=== PATIENT | female | born 1995 | race Native Hawaiian/Other Pacific Islander ===

== ENCOUNTER 2017-01-11 22:39 | Emergency (ER) | payer SELFPAY ==
[~2017-01-11] VITALS: Ht 157.5 cm; Wt 59.0 kg
[~2017-01-11 22:39] MED LIST: CEPHALEXIN500 MG PO; KEFLEX500 MG PO; NORCO 5-325 TA1 EACH PO; PYRIDIUM200 MG PO
--- OUTSIDE RECORDS SUMMARY | 2017-01-11 23:25 | XMS ---
Demographics + + + | Address | [address] | | | [address] | | | [place] [address] | + + + | Preferred Language | Unknown | + + + | Marital Status | Unknown | + + + | Quaker Affiliation | Unknown | + + + | Race | Unknown | + + + | Ethnic Group | Unknown | + + + Author + + + | Author | [facility] | + + + | Organization | [facility] | + + + | Address | [address] | | | [place] [address] | + + + | Phone | | + + + Care Team Providers + + + + | Care Honing Machine Set Up Operator Tool Name | Role | Phone | + + + + Unavailable | Unavailable | + + + + PROBLEMS + + + + + + +---------+ | Type | Condition | ICD9-CM | [id number] | Onset | Condition | SNOMED | | | | Code | Code | Dates | Status | Code | + + + + + + +---------+ | 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 | Unknown | Non Drug | Jun, | Unknown | | | | Allergy | | | + + + + +---------+ SOCIAL HISTORY No smoking Hx information available PLAN OF CARE VITAL SIGNS + + + + | Height | 62 in | 2016-06-14 | + + + + | Weight | 126.8 lbs | 2016-06-14 | + + + + | BMI | 23.19 kg/m2 | 2016-06-14 | + + + + | Temperature | 98.8 degrees Fahrenheit | 2016-06-14 | + + + + | Heart Rate | 86 /min | 2016-06-14 | + + + + | Blood pressure systolic | 115 mm Hg | 2016-06-14 | + + + + | Blood pressure diastolic | 73 mm Hg | 2016-06-14 | + + + + MEDICATIONS + + + + + + + +--------+ | Medicati | Instruct | Dosage | Frequenc | Start | End Date | Duration | Status | | on | ions | | y | Date | | | | + + + + + + + +--------+ | Ketocona | | 1 | | 20 Mar, | | | Active | | zole 1 % | | applicat | | 2016 | | | | | | | ion to | | | | | | | | | scalp as | | | | | | | | | needed | | | | | | + + + + + + + +--------+ | Bicillin | | one dose | | 27 Mar, | | | Active | | L-A | | weekly | | 2016 | | | | | [id number] | | for a | | | | | | | UNIT/4ML | | total of | | | | | | | | | 3 doses | | | | | | | | | over | | | | | | | | | the next | | | | | | | | | 3 | | | | | | | | | weeks. | | | | | | + + + + + + + +--------+ | Hydrocor | External | 1 | 12h | May, | | | Active | | tisone 1 | ly Twice | applicat | | 2016 | | | | | % | a day | ion to | | | | | | | | | affected | | | | | | | | | area | | | | | | + + + + + + + +--------+ RESULTS No Results PROCEDURES + + + + + | Procedure | Date Ordered | Related Diagnosis | Body Site | + + + + + | Bicillin L-A [id number] | June 14, 2016 | | | | units IM | | | | + + + + + | INJECTION | June 14, 2016 | | | | ADMINISTRATION | | | | + + + + + | Est Level 1 Brief | June 14, 2016 | | | + + + + + IMMUNIZATIONS + + + + + | Vaccine | Route | Administration Date | Status | + + + + + | Leeanne Chin [id number] | IM Intramuscular | June 14, 2016 | Administered | | units IM | | | | + + + + +"
--- OUTSIDE RECORDS SUMMARY | 2017-01-11 23:25 | XMS ---
Demographics + + + | Address | [address] | | | [address] | | | [place] [address] | + + + | Preferred Language | Unknown | + + + | Marital Status | Unknown | + + + | Anabaptist Affiliation | Unknown | + + + | Race | Unknown | + + + | Ethnic Group | Unknown | + + + Author + + + | Author | [facility] | + + + | Organization | [facility] | + + + | Address | [address] | | | [place] [address] | + + + | Phone | | + + + Care Team Providers + + + + | Care Mail List Librarian Name | Role | Phone | + + + + Unavailable | Unavailable | + + + + PROBLEMS + + + + + + +---------+ | Type | Condition | ICD9-CM | [id number] | Onset | Condition | SNOMED | | | | Code | Code | Dates | Status | Code | + + + + + + +---------+ | Assessment | Unspecifie | | A64 | Jun, | Active | [id number] | | | d sexually | | [...] + | Height | 62 in | 2016-06-21 | + + + + | Weight | 126.8 lbs | 2016-06-21 | + + + + | BMI | 23.19 kg/m2 | 2016-06-21 | + + + + | Heart Rate | 82 /min | 2016-06-21 | + + + + | Blood pressure systolic | 111 mm Hg | 2016-06-21 | + + + + | Blood pressure diastolic | 76 mm Hg | 2016-06-21 | + + + + MEDICATIONS + + + + + + + +--------+ | Medicati | Instruct | Dosage | Frequenc | Start | End Date | Duration | Status | | on | ions | | y | Date | | | | + + + + + + + +--------+ | Hydrocor | External | 1 | 12h | 20 Mar, | | | Active | | tisone 1 | ly Twice | applicat | | 2017 | | | | | % | [...] | 2016 | | | | | [id number] | | for a | | | [...] Ketocona | | 1 | | 20 May, | | | Active | | zole [...] + + + + | Bicillin L-A [id number] | June 21, 2016 | | | | units IM | | | | + + + + + | INJECTION | June 21, 2016 | | | | ADMINISTRATION | | | | + + + + + | Est Level 1 Brief | June 21, 2016 | | | + + + + + IMMUNIZATIONS + + + + + | Vaccine | Route | Administration Date | Status | + + + + + | Bicillin L-A [id number] | IM Intramuscular | June 21, 2016 | Administered | | units IM | | | | + + + + + | Bicillin L-A [id number] | IM Intramuscular | June 21, 2016 | Administered | | units IM | | | | + + + + +"
[2017-01-12] MEDS ORDERED: CEPHALEXIN500 MG PO (01:14)
[2017-01-12] MEDS ORDERED: CLOBETASOL PRO118 ML TOP (01:14)
== END 2017-01-12 01:25 | disposition home or self-care (01) ==
LOC: ED 22:39
DX: L40.9 Psoriasis, unspecified (principal)
CPT/HCPCS: 99283